=== PATIENT | male | born 1995 | race Caucasian/White ===

== ENCOUNTER 2018-03-10 11:56 | Emergency (ER) | payer SELFPAY ==
[~2018-03-10] VITALS: Ht 177.8 cm; Wt 158.8 kg
--- NOTE | 2018-03-10 11:56 | NUR ---
Patient [facility] for pre-booking medical screening exam, transferred to chair A. RN evaluating patient at bedside.
[2018-03-10 12:00] VITALS: BP 111/77
--- NOTE | 2018-03-10 12:14 | NUR ---
PATIENT IS A 22 YO MALE BIB [facility] FOR PRE BOOK EXAM. AWAKE AND ALERT ABLE TO AMBULATE WITH SLIGHT LIMP, C/O RIGHT LEG PAIN. TO CHAIR E FOR MD EVALUATION.
--- NOTE | 2018-03-10 13:28 | NUR ---
PATIENT IS STILL AWAITING X RAYS NOT DONE AT THIS TIME.
[2018-03-10 15:59] VITALS: BP 111/77
--- NOTE | 2018-03-10 16:00 | NUR ---
Patient discharged with v/s stable. Written and verbal after care instructions given and explained. Patient verbalized understanding. Police with in custody. All questions addressed prior to discharge. Advised to follow up with PMD.
== END 2018-03-10 16:00 ==
LOC: MED 11:56
DX: S92.351A Displaced fracture of fifth metatarsal bone, right foot, initial encounter for closed fracture (principal); M25.521 Pain in right elbow; F10.129 Alcohol abuse with intoxication, unspecified; J45.909 Unspecified asthma, uncomplicated; Z88.8 Allergy status to other drugs, medicaments and biological substances; Z88.2 Allergy status to sulfonamides; V89.2XXA Person injured in unspecified motor-vehicle accident, traffic, initial encounter; Y93.89 Activity, other specified; Y92.488 Other paved roadways as the place of occurrence of the external cause; Y99.8 Other external cause status
CPT/HCPCS: 29515; 73080; 73562; 73590; 73610; 73630; 99284